=== PATIENT | male | born 1995 | race African-American/Black ===

== ENCOUNTER 2022-10-25 18:43 | Emergency (ER) | payer OTHER ==
[~2022-10-25] VITALS: Ht 177.8 cm; Wt 106.6 kg
[2022-10-25] MEDS ORDERED: DICLOFENAC SODI75 MG PO (21:07)
== END 2022-10-25 21:11 | disposition home or self-care (01) ==
LOC: ER 18:43
DX: M62.838 Other muscle spasm (principal)